=== PATIENT | female | born 1945 | race Caucasian/White ===

== ENCOUNTER 2021-04-06 20:44 | Inpatient (IN) | payer MEDICARE, OTHER ==
[~2021-04-06] VITALS: Ht 163 cm; Wt 101.0 kg
[2021-04-06 22:11] LABS: BASOPHIL 0.7 % (0-2); EOSINOPHIL 1.7 % (0-7); HCT 38.4 % (37.0-47.0); HGB 12.7 g/dl (12.5-16.0); MCH 29.5 pg (25.0-31.0); MCHC 33.1 g/dL (32.0-36.0); MCV 89.3 fL (78.0-100.0); MONOCYTE 9.2 % (0-12); MPV 9.6 fL (6.0-9.5); NEUTROPHIL 62.1 % (41-80); NRBC 0; PLT 296 K/uL (150-400); RDW 14.2 % (11.5-14.0); WBC 9.5 K/uL (4.0-10.5)
[2021-04-06 23:08] LABS: ALBUMIN 3.7 g/dL (3.4-5.0); BILIRUBIN - TOTAL 0.3 mg/dL (0.2-1.0); BUN/CREAT RATIO (CALC) 25.8 RATIO; CREATININE 0.89 mg/dL (0.51-0.95); POTASSIUM 3.5 mmol/L (3.5-5.1); TOTAL PROTEIN 7.7 g/dL (6.4-8.2)
[2021-04-06 23:29] LABS: BILIRUBIN NEGATIVE (NEGATIVE); BLOOD NEGATIVE Ery/uL (NEGATIVE); CLARITY CLEAR (CLEAR); COLOR YELLOW (YELLOW); GLUCOSE (U) NORMAL (NORMAL); LEUKOCYTES 3+ Leu/uL (NEGATIVE); NITRITE NEGATIVE (NEGATIVE); PROTEIN NEGATIVE (NEGATIVE); SPECIFIC GRAVITY 1.015 (1.001-1.030); UROBILINOGEN 0.2 mg/dL (0.2-1.0)
[2021-04-06 23:35] LABS: BACTERIA TRACE; URINARY WBC 20-50
[2021-04-07] MEDS ORDERED: DIOVAN80 MG PO (02:37)
[2021-04-07] MEDS ORDERED: PROAIR DIGIHAL90 MCG INH (02:38)
[2021-04-07] MEDS ORDERED: FLONASE ALLER15.8 ML (02:40)
[2021-04-07] MEDS ORDERED: SINGULAIR10 MG PO ×2 (02:42→02:52)
[2021-04-07] MEDS ORDERED: BETAMETHASONE D50 G2 TOP (02:42)
[2021-04-07] MEDS ORDERED: TEMOVATE15 GM TOP (02:45)
[2021-04-07] MEDS ORDERED: FLOVENT HFA12 GM INH (02:47)
[2021-04-07] MEDS ORDERED: ATROVENT HFA12.9 GM (02:50)
[2021-04-07] MEDS ORDERED: LEVOXYL112 MCG PO (02:51)
[2021-04-07] MEDS ORDERED: PRILOSEC20 MG PO (02:52)
[2021-04-07] MEDS ORDERED: NIZORAL CREAM 330 GM TOP (02:53)
[2021-04-07] MEDS ORDERED: HCTZ25 MG PO (02:54)
[2021-04-07] MEDS ORDERED: METFORMIN HCL500 MG PO (02:55)
[2021-04-07 06:17] LABS: BASOPHIL 0.4 % (0-2); EOSINOPHIL 0.8 % (0-7); HCT 37.7 % (37.0-47.0); HGB 12.4 g/dl (12.5-16.0); LYMPHOCYTE 21.1 % (15-48); MCH 29.5 pg (25.0-31.0); MCHC 32.9 g/dL (32.0-36.0); MCV 89.5 fL (78.0-100.0); MONOCYTE 7.8 % (0-12); MPV 9.3 fL (6.0-9.5); NEUTROPHIL 69.5 % (41-80); NRBC 0; PLT 249 K/uL (150-400); RBC 4.21 M/uL (4.20-5.40); RDW 13.9 % (11.5-14.0); WBC 9.1 K/uL (4.0-10.5)
[2021-04-07 06:32] LABS: INR 1.08 (0.9-1.2); PROTHROMBIN TIME 13.4 SECONDS (11.8-13.4)
[2021-04-07 06:39] LABS: BUN/CREAT RATIO (CALC) 27.9 RATIO; CREATININE 0.68 mg/dL (0.51-0.95); POTASSIUM 3.7 mmol/L (3.5-5.1)
[2021-04-07] MEDS ORDERED: NEURONTIN100 MG PO (10:22)
[2021-04-08 06:02] LABS: HCT 34.9 % (37.0-47.0); HGB 11.3 g/dl (12.5-16.0); MCH 29.7 pg (25.0-31.0); MCHC 32.4 g/dL (32.0-36.0); MCV 91.6 fL (78.0-100.0); MPV 9.3 fL (6.0-9.5); RBC 3.81 M/uL (4.20-5.40); RDW 14.1 % (11.5-14.0); WBC 14.1 K/uL (4.0-10.5)
[2021-04-08 06:26] LABS: BUN/CREAT RATIO (CALC) 19.5 RATIO; CREATININE 0.77 mg/dL (0.51-0.95)
[2021-04-08] MEDS ORDERED: NEURONTIN100 MG PO (10:04)
[2021-04-08] MEDS ORDERED: ACETAMINOPHEN500 M1 PO ×2 (11:08→11:44)
[2021-04-08] MEDS ORDERED: OXYCODONE-ACET1 EAC1 PO (11:08)
[2021-04-08] MEDS ORDERED: NITROFURANTOIN100 MG PO ×2 (11:26→12:26)
[2021-04-08] MEDS ORDERED: PERCOCET 5-3251 EACH PO (12:26)
== END 2021-04-08 14:22 | disposition home or self-care (01) | DRG 354 ==
LOC: FER 20:44 → EDBD 20:44 → FMS 04-07 00:46
PROVIDERS: Nurse Practitioner; Nurse Practitioner Acute Care; Nurse Practitioner Family; Surgery; ADMIT Internal Medicine
PROC: 0WUF4JZ Supplement Abdominal Wall with Synthetic Substitute, Percutaneous Endoscopic Approach (ICD-10-PCS; principal; 2021-04-07 12:00)
PROC: 0WUF4JZ Supplement Abdominal Wall with Synthetic Substitute, Percutaneous Endoscopic Approach (ICD-10-PCS; 2021-04-07 12:00)
DX: K43.6 Other and unspecified ventral hernia with obstruction, without gangrene (principal); E87.1 Hypo-osmolality and hyponatremia; N39.0 Urinary tract infection, site not specified; Z20.822 Contact with and (suspected) exposure to COVID-19; K42.0 Umbilical hernia with obstruction, without gangrene; R01.1 Cardiac murmur, unspecified; N83.202 Unspecified ovarian cyst, left side; B35.6 Tinea cruris; I10 Essential (primary) hypertension; E11.9 Type 2 diabetes mellitus without complications; E03.9 Hypothyroidism, unspecified; J44.9 Chronic obstructive pulmonary disease, unspecified; L30.3 Infective dermatitis; Z90.49 Acquired absence of other specified parts of digestive tract; Z85.828 Personal history of other malignant neoplasm of skin; Z86.018 Personal history of other benign neoplasm; Z98.41 Cataract extraction status, right eye; Z98.42 Cataract extraction status, left eye; Z98.890 Other specified postprocedural states; Z79.899 Other long term (current) drug therapy; Z79.84 Long term (current) use of oral hypoglycemic drugs
CPT/HCPCS: 36415; 80048; 80053; 81001; 82150; 82962; 83036; 83690; 85025; 85610; 93005; 94010; C1713; C1781; J0696; J1100; J1170; J1885; J1956; J2370; J2405; J2704; J3010; J7030; J7120; Q9967; U0002

== ENCOUNTER → 2021-06-27 | Day surgery (SDC) | payer MEDICARE, OTHER ==
[~2021-06-27] VITALS: Ht 162.6 cm; Wt 98.0 kg
[~2021-06-27] MED LIST: ACETAMINOPHEN500 M1 PO; ATROVENT HFA12.9 GM; BETAMETHASONE D50 G2 TOP; DIOVAN80 MG PO; FLONASE ALLER15.8 ML; FLOVENT HFA12 GM INH; HCTZ25 MG PO; LEVOXYL112 MCG PO; METFORMIN HCL500 MG PO; NEURONTIN100 MG PO; NITROFURANTOIN100 MG PO; NIZORAL CREAM 330 GM TOP; OXYCODONE-ACET1 EAC1 PO; PERCOCET 5-3251 EACH PO; PRILOSEC20 MG PO; PROAIR DIGIHAL90 MCG INH; SINGULAIR10 MG PO; TEMOVATE15 GM TOP
[2021-06-27 12:30] LABS: HCT 38.9 % (37.0-47.0); MCH 29.7 pg (25.0-31.0); MCHC 33.4 g/dL (32.0-36.0); MPV 9.2 fL (6.0-9.5); RBC 4.37 M/uL (4.20-5.40); RDW 13.5 % (11.5-14.0); WBC 8.5 K/uL (4.0-10.5)
[2021-06-27 12:59] LABS: BUN/CREAT RATIO (CALC) 33.8 RATIO; CREATININE 0.71 mg/dL (0.51-0.95); POTASSIUM 3.5 mmol/L (3.5-5.1)
== END | disposition home or self-care (01) ==
LOC: FAS 10:53
PROVIDERS: Legal Medicine
DX: G56.02 Carpal tunnel syndrome, left upper limb (principal); E11.9 Type 2 diabetes mellitus without complications; I10 Essential (primary) hypertension; E03.9 Hypothyroidism, unspecified; Z88.2 Allergy status to sulfonamides; Z88.1 Allergy status to other antibiotic agents; Z79.84 Long term (current) use of oral hypoglycemic drugs; Z79.899 Other long term (current) drug therapy
CPT/HCPCS: 36415; 80048; J1100; J1170; J1885; J2250; J2405; J2704; J2795; J3010; J7120